=== PATIENT | female | born 1960 | race Caucasian/White ===

== ENCOUNTER 2020-10-20 20:09 | Emergency (ER) | payer OTHER, SELFPAY ==
[2020-10-20 20:10] VITALS: BP 141/77; PULSE 80; RESP 16; TEMP 37.2; O2SAT 98; BMI 22.8
--- NOTE | 2020-10-20 22:55 | ED.NECK ---
HPI - Neck Pain/Injury General Chief Complaint: Neck Pain/Injury Stated Complaint: neck pain Time Seen by Provider: 10/20/20 22:32 Source: patient Mode of arrival: ambulatory Limitations: no limitations History of Present Illness HPI Narrative: Patient comes in the emergency room complaining of left-sided neck pain. Patient states that she has chronic back pain for the last 30 years due to a work related injury/gymnastics. However, over the last couple of days patient has been complaining of left-sided neck pain. Patient states when she turns her head towards the right foot has no pain but she has significant pain on the left side of the neck when she tries to turn her head towards the left. Patient also having pain in the upper back on the left side. Patient states that due to her chronic injuries she is supposed to be on a sudden weight, but she has not been compliant. Patient also states that she was recently at the dentist, she had a procedure where she was required to hold her mouth open for bone. A time. Patient states she had significant pain around the jaw from that. Patient scheduled an appointment with a chiropractor, who massaged her facial muscles and help with the pain. Patient denies fever chills Related Data Previous Rx's Medication Instructions Recorded cyclobenzaprine 10 mg tablet 10 mg PO TID PRN #10 tab 10/20/20 ketorolac 10 mg tablet 10 mg PO TID PRN 5 Days #10 tab 10/20/20 Allergies Allergy/AdvReac Type Severity Reaction Status Date / Time Penicillins Allergy Unknown Verified 10/20/20 20:18 Review of Systems Review of Systems: Constitutional : No Weight loss, No Fever, No Chills, No Night Sweats, No Fatigue, No Malaise ENT/Mouth : No Hearing loss, No Ear Pain, No Nasal Congestion, No Sinus Pain, No Hoarseness, No sore throat, No Rhinorrhea, No Swallowing Difficulty Eyes: No Eye Pain, No Swelling, No Redness, No Foreign Body, No Discharge, No Vision Changes Cardiovascular : No Chest Pain, No SOB, No Dyspnea on Exertion, No Orthopnea, No Edema, No Palpitations Respiratory : No Cough, No Sputum, No Wheezing, No Smoke Exposure, No Dyspnea Gastrointestinal : No Nausea, No Vomiting, No Diarrhea, No Constipation, No abdominal Pain, No Hematochezia, No Melena Genitourinary : no irregular bleeding, No Dysuria, No Urinary Frequency, No Hematuria, No Urinary Incontinence, No Urgency, No Flank Pain, No Urinary Flow Changes, No Hesitancy Musculoskeletal : Complaining of left-sided neck pain, No joint pain, No Myalgias, No Joint Swelling Skin : No Skin Lesions, No rash Neuro : No Weakness, No Numbness, No Paresthesias, No Loss of Consciousness, No Dizziness, No Headache Psych : No Anxiety/Panic, No Depression, No SI/HI/AH/VH, No Social Issues, Heme/Lymph: No Bruising, No Bleeding,No Lymphadenopathy Endocrine : No Polyuria, No Polydipsia, No Temperature Intolerance [facility] Social History Social History Advance Directives: No Physical Exam Vital Signs: Vital Signs: Last Vital Signs Temp 98.9 F 10/20/20 20:10 Pulse 80 10/20/20 20:10 Resp 16 10/20/20 20:10 BP 141/77 H 10/20/20 20:10 Pulse Ox 98 10/20/20 20:10 Body Mass Index 22.8 Const: Other: Appearance: Alert. Oriented X3. No acute distress. Eyes: Pupils equal, round and reactive to light. ENT: Pharynx normal. Neck: Patient has palpable spasms to the left side of the neck, no C-spine tenderness, no palpable step-offs, no pain to palpation over the right side of the neck. Patient is able to flex and extend her neck with limited range of motion due to pain in the left side of the neck. Patient is able to turn her head towards the right buttock amenable to term the head towards the left due to pain on the left side of the neck posteriorly. CVS: Normal heart rate and rhythm. Pulses normal. Normal S1 and S2 Respiratory: No respiratory distress. Breath sounds normal. No Wheezing. No rales Abdomen: Soft and nontender. No rigidity. No distention. good BS x4 Skin: Skin warm and dry. Normal skin color. Normal skin turgor. Extremities: No lower extremity edema. No lower extremity edema. No Lacerations. No Rash Neuro: Oriented X 3. No motor deficit. No sensory deficit. Moving all extermities. No slurred speech. Course Course Course Narrative: I discussed with the floor of the bathroom likely has torticollis, patient was given 1 dose of IM Toradol and p.o. Valium emergency room. I discussed with the patient that she will likely benefit from physical therapy At this time, meningitis is not suspected Discharge Plan Discharge Clinical Impression: Torticollis Patient Disposition: Home, Self-Care Instructions: Spasmodic Torticollis (ED) Additional Instructions: Please follow-up with your primary care physician tomorrow. If you have any worsening or new symptoms, please return to the emergency room or call 911 Prescriptions: New ketorolac 10 mg tablet 10 mg PO TID PRN (Reason: pain) 5 Days Qty: 10 RF: 0 cyclobenzaprine 10 mg tablet 10 mg PO TID PRN (Reason: muscle spasm) Qty: 10 RF: 0
[2020-10-20] MEDS: Ketorolac Tromethamine 60 MG/2 ML VIAL IM (23:06)
[2020-10-20] MEDS: diazePAM 2 MG TABLET PO (23:07)
== END 2020-10-20 23:13 | disposition home or self-care (01) ==
PROVIDERS: Emergency Provider Emergency Medicine
DX: M43.6 Torticollis (principal)
CPT/HCPCS: 96372; 99283; 99284; J1885